=== PATIENT | female | born 1990 | race Caucasian/White ===

== ENCOUNTER 2019-01-28 16:17 | Emergency (ER) | payer SELFPAY ==
[~2019-01-28] VITALS: Ht 157.5 cm; Wt 65.9 kg
[2019-01-28 16:52] VITALS: Ht 157.5 cm; Wt 65.9 kg
[2019-01-28] MEDS ORDERED: ULTRAM50 MG PO (17:59)
[2019-01-28 18:55] VITALS: BP 127/58
== END 2019-01-28 18:30 | disposition home or self-care (01) ==
LOC: D.ER 16:17
DX: S93.401A Sprain of unspecified ligament of right ankle, initial encounter (principal); W01.0XXA Fall on same level from slipping, tripping and stumbling without subsequent striking against object, initial encounter; F17.210 Nicotine dependence, cigarettes, uncomplicated